=== PATIENT | female | born 1950 | race Caucasian/White ===

== ENCOUNTER 2017-02-08 13:42 | Emergency (ER) | payer OTHER ==
[~2017-02-08] VITALS: Ht 154.9 cm; Wt 109.3 kg
[2017-02-08 15:40] LABS: CALCIUM 8.9 mg/dL (8.5-10.1); CARBON DIOXIDE 28.5 mmol/L (21-32); CREATININE SERUM 1.1 mg/dL (0.6-1.0); POTASSIUM SERUM 3.9 mmol/L (3.5-5.1)
[2017-02-08 15:47] LABS: BASOPHIL % 0.5 % (0-2); BILIRUBIN TOTAL 0.58 mg/dL (0.20-1.00); PLATELET COUNT 223 x10^3mcL (130-400); RED CELL DISTRIBUTION WIDTH 13.3 % (11.5-14.5); TOTAL PROTEIN, SERUM 7.4 g/dL (6.4-8.2)
[2017-02-08 16:02] LABS: ALBUMIN 3.1 g/dL (3.4-5.0)
[2017-02-08 18:27] VITALS: BP 135/86
[2017-02-08 18:36] LABS: microscopic required? YES; urine erythrocyte TRACE (NEGATIVE)
== END 2017-02-08 18:27 | disposition home or self-care (01) ==
LOC: ED 13:42
PROVIDERS: Emergency Medicine
DX: B34.9 Viral infection, unspecified (principal); J44.9 Chronic obstructive pulmonary disease, unspecified; E11.65 Type 2 diabetes mellitus with hyperglycemia; Z88.1 Allergy status to other antibiotic agents; Z79.899 Other long term (current) drug therapy
CPT/HCPCS: 87804; J1815; J7030; J7613; J7644; Q0092